=== PATIENT | female | born 1970 | race Caucasian/White ===

== ENCOUNTER → 2019-02-06 | Outpatient (CLI) | payer BC, MEDICARE, SELFPAY ==
[2019-01-31 13:53] VITALS: BMI 25.8
--- NOTE | 2019-02-03 15:55 | HP.PCM_ITS ---
Problem List (1) Abnormal mammogram of left breast Status: Acute History and Physical Date of Admission: 02/06/19 MR#:[id number] Name: FLORENTINO HARRIS Rep #: [id number] : 1970 Provider: Ashok Mccoy MD Age/Sex: 48/F Location: [facility] Status: Signed Intake Vital Signs 01/31/19 Height 5 ft 2 in 01/31/19 Weight: 141 lb 5 oz 01/31/19 Body Mass Index (BMI) 25.8 01/31/19 Blood Pressure 121/88 H 01/31/19 Blood Pressure Location Rt brachial 01/31/19 Blood Pressure Position Sitting 01/31/19 Respiratory Rate 18 01/31/19 Pulse Rate 70 01/31/19 Pulse Ox 100 Intake Visit Reasons: Birads 4 L Breast Mammo & US 12/22 Chief Complaint: birads 4 left breast 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 Is patient in pain?: No Allergies Sulfa (Sulfonamide Antibiotics) Allergy (Mild, Verified 01/31/19 13:58) hives venlafaxine [From Effexor] Allergy (Mild, Verified 01/31/19 13:58) hives Medications amlodipine 10 mg tablet 10 mg PO DAILY 01/31/19 [History Confirmed 01/31/19] fluoxetine 20 mg tablet 20 mg PO DAILY 01/31/19 [History Confirmed 01/31/19] fluticasone furoate 50 mcg/actuation blister powder for inhalation INHALATION ea 01/31/19 [History Confirmed 01/31/19] folic acid 1 mg tablet 1 mg PO DAILY 01/31/19 [History Confirmed 01/31/19] gabapentin 800 mg tablet 800 mg PO TID 01/31/19 [History Confirmed 01/31/19] metoprolol succinate ER 50 mg capsule sprinkle, ext. release 24 hr 50 mg PO DAILY 01/31/19 [History Confirmed 01/31/19] mirtazapine 45 mg tablet 45 mg PO DAILY 01/31/19 [History Confirmed 01/31/19] multivitamin,yd-ufds-yjskzvhd tablet 1 tab PO DAILY 01/31/19 [History Confirmed 01/31/19] omeprazole 20 mg capsule,delayed release 20 mg PO DAILY 01/31/19 [History Confirmed 01/31/19] prednisone 10 mg tablet 10 mg PO DAILY 01/31/19 [History Confirmed 01/31/19] quetiapine 100 mg tablet 100 mg PO TID 01/31/19 [History Confirmed 01/31/19] tofacitinib 5 mg tablet 5 mg PO BID 01/31/19 [History Confirmed 01/31/19] Is last menstrual period known: No Post menopausal: Yes Patient : No PFSH Medical History Abnormal mammogram of left breast (Acute) Anxiety (Acute) GERD (gastroesophageal reflux disease) (Acute) History of DVT (deep vein thrombosis) (Acute) Osteoarthritis (Acute) Rheumatoid arthritis (Acute) HTN (hypertension) (Chronic) Surgical History History of bunionectomy of both great toes (Acute) Status post finger joint fusion (Acute) Family History Sister Rheumatoid arthritis Social History Smoking Status: Never smoker HPI HPI HPI: FLORENTINO HARRIS, is a 48 F who presents to the office today for HPI HPI Surgical H&P: Yes HPI: FLORENTINO HARRIS, is a 48 F who presents to the office today for surgical consultation. The patient is referred by Dr. Vic Hinojosa in the written copy of my surgical consult and recommendations will be returned to her. Very pleasant 48-year-old female. G0, . Menarche at age 11. Menopause approximately age 46. No previous breast biopsies. She denied any estrogen replacement. 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 There is no family history of breast cancer. She denies any nipple discharge or bleeding. She has not had any palpable breast mass. She denies any previous history of breast trauma. She presented to [facility] in [facility] and on December 22, 2018 had screening mammography then diagnostic left mammography. At the 11 o'clock position left breast there were felt to be coarse calcifications too numerous to count associated with some fine calcifications. BI-RADS Category 4. On January 10, 2019 she had a left breast ultrasound which did not demonstrate focal mass ROS General General: Yes fatigue; no weight change, appetite, colon cancer, breast cancer or weakness HEENT HEENT: No difficulty swallowing, eye injury, eye surgery, swollen glands or hoarseness Endo Endocrine: No thyroid disease, diabetes mellitus, thyroid cancer, Hair loss, heat intolerance or cold intolerance Musc Musculoskeletal: Yes arthritis and rheumatoid arthritis; no back problems, gout or joint pain Cardio Cardiovascular: Yes high blood pressure; no murmur, pacemaker, heart disease, atrial fibrillation, heart attack, heart stent, palpitations, shortness of breat with exertion or chest pain Resp Respiratory: No shortness of breath, No sleep apnea, No cough, No COPD, No asthma, No emphysema, No wheezing Gastro Gastrointestinal: No abdominal pain, No nausea or vomiting, No diarrhea, No constipation, No blood in stool, No acid reflux, No hemorrhoids, No ulcers, No gallbladder problem, No black,tarry stools Jovany Hematologic: No blood thinners, No blood disorders, No bleeding, No anemia, Yes blood clots Additional Details: DVT 2015 Neuro Neurologic: No weakness Exam Const General: cooperative [facility] Other: [place] Chest Other: Right breast: No focal mass. No nipple discharge. No distortion. No axillary or clavicular adenopathy Left breast: Mild fibrous change upper mid left breast. No focally concerning mass. No distortion. No tenderness. No nipple discharge. No axillary or clavicular Resp Effort & Inspection: normal respiratory effort Auscultation: clear to auscultation bilaterally Cardio Rate: regular rate Rhythm: regular rhythm Heart Sounds: no murmurs Assessment & Plan Problems 1. Abnormal mammogram of left breast R92.8 Plan 56-year-old female on 2 separate immunologic suppressive agents. She has been able to successfully continue those agents while taking oral antibiotics to resolving a right ankle cellulitis. She is not currently showing any signs of systemic infection. She has an abnormal left mammogram with an area of coarse calcification with some fine calcification 11 o'clock position left breast. I am proposing for the patient is stereotactic needle core biopsy of this area. Might contemplate utilizing a smaller gauge needle. She has had an opportunity to ask and have questions answered. We will schedule and expedite her care. I very much appreciate the kind opportunity of assisting with her surgical care. CC: Dr. Jadyn Mccoy M.D., F.A.C.S. Coding Level of Care Code Exp prob focused,strt fwd Diagnoses Abnormal mammogram of left breast R92.8 01/31/19 0829 <Electronically signed by Ashok Mccoy MD> Date Ashok Sierra Signature: Date (if applicable) CC: Jadyn hinojosa ~ I have re-examined the patient. There are no clinical changes since date of exam.
--- NOTE | 2019-02-06 11:15 | BRBX_PTH ---
PATIENT: FLORENTINO HARRIS LOC: [facility] U#:[id number] AGE/SX: 48/F ROOM: RE02/06/[address]: Dr. Ashok Mccoy MD : 1970 BED: DIS: 02/06/2019 SPEC #: [id number] RECD: 02/06/19 11:49 STATUS: LIT REClark #: [id number] NANCI: 02/06/19 11:[address]: Ashok Mccoy DEPT: SURGICAL PATHOLOGY RECD BY: Hira Leyva ENTERED: 02/06/19 12:46 SP TYPE: BREAST BX OTHR DR: Dr. Jadyn Jeff MD Tissues: Left breast, NOS Procedures: Surgery Specimen Level IV HEADER OPERATION: Left breast stereotactic needle core biopsy PRE-OP DIAGNOSIS: Microcalcifications TISSUE SUBMITTED: Left breast ISCHEMIC TIME: 2 minutes FIXATION TIME: 8.5 hours MICROSCOPIC DIAGNOSIS Left breast, stereotactic needle core biopsy: Fragments of mature adipose tissue with focal fat necrosis and dystrophic calcifications. Negative for atypia or malignancy. Breast tissue is not identified in the submitted specimen. LUCIAN:ryanne 02/07/19 COMMENT Correlation with clinical, radiologic findings and appropriate follow up are necessary. MICROSCOPIC DESCRIPTION Slides are reviewed. GROSS DESCRIPTION Received in fixative is one container labeled with the patient's name and designated left breast stereotactic needle core biopsy. The specimen consists of multiple irregular fragments of yoder-yellow soft tissue that in aggregate measure 1.8 x 1.5 x 0.4 cm. The specimen is totally submitted in three cassettes. / CE:ryanne 02/06/19 TC:5 CPT: 44170
--- NOTE | 2019-02-06 11:27 | PCM.OPRPT ---
Problem List (1) Abnormal mammogram of left breast Status: Acute Report of Operation Date of Procedure: 02/06/19 Pre-Operative Diagnosis: Cluster microcalcifications upper mid left breast Post-Operative Diagnosis: Same Surgery/Procedure Performed:: Stereotactic needle core biopsy of upper mid left breast Description of Surgical Findings:: Timeout and informed consent was obtained. 48-year-old female was taken to the stereotactic room placed on the table the left breast was placed in the cc view. Stereotactic images were obtained. Digital information was obtained on the single target site. Target on tunnel kiln repairer was selected replacing image to. The breast was prepped with Betadine. 1% lidocaine was used as local anesthetic. Throughout the procedure a total of 10 cc was used. Because of the patient's immunosuppressive agent medications I elected to use the 10-gauge needle. A small stab incision was created. The needle was advanced to prefire depth. Prefire films were obtained demonstrating adequate localization. The device was fired and it became apparent that the microcalcifications were quite close. Therefore I closed the chamber down to 12 mm. Multiple cores were obtained. Specimen films were obtained and several of the cores had a coarse bright calcifications correlating with the preoperative imaging. The specimens were immediately placed in formalin. A small marking clip was left at 12 o'clock position. On fast view demonstrated that the marking clip was now present in all the previous calcifications had been removed. She was released from the device and pressure was held for hemostasis. Steri-Strips and Telfa and OpSite dressing was applied. No apparent complications. Blood loss was minimal. The patient will be notified of pathology results as they become available Ashok Mccoy M.D., F.A.C.S. Type of Anesthesia:: Local
== END | disposition home or self-care (01) ==
LOC: BIRAD 10:21
PROVIDERS: Family Provider Student in an Organized Health Care Education/Training Program; PCP Student in an Organized Health Care Education/Training Program; Referring Provider Surgery; Visit Provider Surgery
DX: R92.8 Other abnormal and inconclusive findings on diagnostic imaging of breast (principal); I10 Essential (primary) hypertension; M06.9 Rheumatoid arthritis, unspecified; M19.90 Unspecified osteoarthritis, unspecified site; K21.9 Gastro-esophageal reflux disease without esophagitis; F41.9 Anxiety disorder, unspecified; Z86.718 Personal history of other venous thrombosis and embolism; Z79.899 Other long term (current) drug therapy
CPT/HCPCS: 19081; 88305; J7050

== ENCOUNTER 2021-12-02 16:29 | Inpatient (IN) | payer BC, MEDICARE, SELFPAY ==
[2021-12-02 16:30] VITALS: BP 101/78; PULSE 69; RESP 15; TEMP 36; O2SAT 97; BMI 13.7
--- NOTE | 2021-12-02 16:47 | EKG12_ITS ---
Test Reason : SURGERY Blood Pressure : / mmHG Vent. Rate : 048 BPM Atrial Rate : 048 BPM P-R Int : 170 ms QRS Dur : 072 ms QT Int : 434 ms P-R-T Axes : 066 -87 057 degrees QTc Int : 387 ms Sinus bradycardia Left axis deviation Low voltage QRS Inferior infarct , age undetermined Abnormal ECG Confirmed by JULI ZHAO, SHWETA ([id number]), editorial project manager JASON LEBLANC ([id number]) on 12/04/2021 1:34:51 PM Referred By: EMMA Confirmed By:SHWETA BUSTOS MD
--- NOTE | 2021-12-02 16:55 | EDS_ITS ---
HPI History of Present Illness Chief Complaint: Lower Extremity Injury Detail of Chief Complaint: Right femoral neck fracture Informant: patient and spouse/S.O. Occured/Mechanism Mechanism/Context: Yes blunt trauma, Yes fall and Yes same level fall Comment: Patient fell on Wednesday and was seen at outside facility Onset/Context/Timing Onset: Days (Injury occurred Wednesday, November 29) Context: Sudden Onset Timing: Continuous Quality of Pain: Dull and Aching Location: Right groin region Current Severity: Gone Maximum Severity: Moderate Worsened by: Movement Relieved by: Supine remaining still Associated Symptoms Associated Symptoms: Positive for Loss of Funtion Narrative Narrative: Patient is a 51-year-old woman with history of hypertension and rheumatoid arthritis on numerous rheumatologic meds who fell on Wednesday and was seen at outside facility. She had a x-ray that was reported Jono negative. There was a CAT scan that raised concern for a hairline fracture she was discharged to home with walker. She was scheduled to see Dr. Temple on Wednesday. She saw his physician assistant press operator. X-rays were taken. X-rays from outside facility were reviewed by me and reveal a femoral neck fracture that is displaced. According to the she has put weight on her leg. She does complain of pain in the right groin. She denied head injury at time of fall. She denies headache. Denies visual, ocular auditory symptoms. Denies neck pain. She denies paresthesia, anesthesia or motor weakness. Tetanus Immunization: 5-10 years Prior similar symptoms: No Recent Illness/Hospitalization: Yes [facility] Medical History (Updated 12/02/21 @ 19:[address] Issac Hernandez MD) Abnormal mammogram of left breast Anorexia nervosa Anxiety COVID-19 vaccine dose declined GERD (gastroesophageal reflux disease) History of DVT (deep vein thrombosis) HTN (hypertension) Non-smoker Osteoarthritis Rheumatoid arthritis Home Medications amlodipine 10 mg tablet 10 mg PO DAILY 01/31/19 [History Last Taken 12/02/21] fluoxetine 20 mg tablet 20 mg PO DAILY 01/31/19 [History Last Taken 12/01/21] fluticasone furoate 50 mcg/actuation blister powder for inhalation 50 mcg INHALATION QWEEK ea 01/31/19 [History Last Taken Unknown] folic acid 1 mg tablet 1 mg PO DAILY 01/31/19 [History Last Taken 12/02/21] gabapentin 800 mg tablet 800 mg PO TID 01/31/19 [History Last Taken 12/02/21] metoprolol succinate 50 mg capsule sprinkle, ext. release 24 hr 50 mg PO DAILY 01/31/19 [History Last Taken 12/02/21] mirtazapine 45 mg tablet 45 mg PO DAILY 01/31/19 [History Last Taken 12/01/21] multivitamin,oy-bmhi-yhucmlvy 1 tab PO DAILY 01/31/19 [History Last Taken 12/01/21] omeprazole 20 mg capsule,delayed release 20 mg PO DAILY 01/31/19 [History Last Taken 12/01/21] quetiapine 100 mg tablet 100 mg PO DAILY 01/31/19 [History Last Taken 12/01/21] tofacitinib 5 mg tablet 5 mg PO BID 01/31/19 [History Last Taken 12/01/21] prednisone 2 mg PO DAILY 12/02/21 [History Last Taken 12/01/21] prednisone 5 mg PO DAILY 12/02/21 [History Last Taken 12/01/21] Allergy/AdvReac Type Severity Reaction Status Date / Time Sulfa (Sulfonamide Allergy Mild hives Verified 12/02/21 16:32 Antibiotics) venlafaxine [From Effexor] Allergy Mild hives Verified 12/02/21 16:32 Family History (Updated 12/02/21 @ 17:[address] Khoa Garibay DO) Sister Rheumatoid arthritis Other CAD (coronary artery disease) CVA (cerebral vascular accident) Surgical History History of bunionectomy of both great toes Status post finger joint fusion Social History household members: spouse Smoking Status: Never smoker substance use type: does not use ROS ROS ED Constitutional Constitutional ED: Denies chills, fever(s), subjective, sweats or weight loss Eyes Eyes: Denies blurry vision, change in vision or diplopia ENT ENT ED: Denies ear pain, rhinorrhea or sore throat Cardiovascular Cardiovascular: Denies chest pain, orthopnea, palpitations, paroxysmal nocturnal dyspnea or racing heartbeat Respiratory/Chest Respiratory/Chest: Reports other Details: She denies pleuritic chest pain ; Denies cough, dyspnea, dyspnea on exertion, orthopnea or paroxysmal nocturnal dyspnea Gastrointestinal Gastrointestinal: Denies abdominal pain, diarrhea, nausea or vomiting Genitourinary Genitourinary ED: Denies dysuria, hematuria or urinary frequency Musculoskeletal Musculoskeletal: Reports arthralgias; Denies back pain, myalgias or neck pain Integumentary Reports Abrasions; Denies rash Neurologic Neurologic: Denies headache(s), paresthesias or weakness Hematologic/Lymphatic Hematologic/Lymphatic: Denies easy bleeding or easy bruising EXAM Physical Exam Const Vital Signs: 12/02/21 16:30 Temperature 96.8 F L Temperature Source Temporal Pulse Rate 69 Respiratory Rate 15 Blood Pressure 101/78 Blood Pressure Mean 85 Pulse Ox 97 Oxygen Delivery Method Room Air Positive well developed and cachectic General Appearance ED: well developed, cachectic and NAD Nutritional Appearance: cachectic HEENT Reports moist mucous membranes HEENT Narrative: Ears normal. Nares patent. No evidence of dental trauma. normocephalic and atraumatic Eyes PERRL Eyes Narrative: Extract muscle intact. Sclerae anicteric. Conjunctive is pink. Neck full ROM and supple Thyroid: Negative for tender Chest Wall inspection of chest normal Resp normal respiratory effort and clear to auscultation bilaterally Cardio regular rate, regular rhythm, S1 normal heart sound, S2 normal heart sound and no murmurs GI non-tender, non-distended and no masses Auscultation: normoactive bowel sounds Palpation: soft Back/Spine no CVA tenderness Thoracic Spine / Upper Back: Negative for thoracic spinal tenderness Lumbar Spine / Lower Back: Negative for lumbar spinal tenderness Extremity normal to inspection Extremity Narrative: The right lower extremity appears shortened. Patient has significant deformity to joints consistent with rheumatoid arthritis. General Extremety ED: Yes weight-bearing difficulty; Negative for cyanosis General Extremity: weight-bearing difficulty; Negative for cyanosis Neuro oriented x3 and CN's II-XII intact bilaterally Sensorium / Orientation: alert Psych mental status grossly normal Skin Lesions: no lesions Rashes: no rashes MDM MDM MDM Narrative Medical decision making narrative: X-rays from outside facility reviewed. Patient has a femoral neck fracture on the right. Appropriate blood work including type and screen, EKG and chest x-ray obtained for preoperative clearance. Patient will be admitted to medicine with consult to Dr. Estrada who will perform the surgery. Lab Data Attestation: I reviewed the patient's lab results. Labs: Laboratory Results - last 24 hr 12/02/21 12/02/21 12/02/21 16:46 17:10 17:10 WBC 6.1 RBC 4.13 L Hgb 14.8 Hct 42.1 MCV 101.9 H MCH 35.8 H MCHC 35.2 RDW Std Deviation 51.4 H RDW Coeff of Shanta 13.4 Plt Count 209 MPV 9.0 Immature Gran % (Auto) 0.300 Neut % (Auto) 75.9 H Lymph % (Auto) 14.7 L [place] % (Auto) 8.9 Eos % (Auto) 0.2 Baso % (Auto) 0.0 Absolute Neuts (auto) 4.6 Absolute Lymphs (auto) 0.89 Nucleated RBC % 0 PT 12.7 INR 1.0 APTT 30.4 Sodium 135 L Potassium 4.4 Chloride 100 Carbon Dioxide 30.0 Anion Gap 5 BUN 10 Creatinine 0.52 L Estim Creat Clear Calc 67.19 Est GFR (MDRD) Af Amer 157 Est GFR (MDRD) Non-Af 130 BUN/Creatinine Ratio 19.1 Glucose 90 Calcium 8.2 L Total Bilirubin 0.50 AST 19 ALT 29 Alkaline Phosphatase 48 Total Protein 5.8 L Albumin 2.8 L Globulin 3.0 Albumin/Globulin Ratio 0.9 Radiography X-Ray: Read by ED Physician (Single view chest x-ray was interpreted by me as no acute findings. Cardiac silhouette size normal. There is evidence of hyperaeration. There is no significant abnormality of the osseous structures. The mediastinum is unremarkable.) and - (X-ray of the right hip and pelvis reveals a displaced femoral neck fracture on the right that was provided by patient from outside facility.) Diagnostic Testing: Clinical Impression(s) from Imaging Studies Chest X-Ray 12/02/21 17:25 IMPRESSION: No radiographic evidence of acute cardiopulmonary disease. at 1842 Reported and signed by: Ravinder Melissa MD Electronically Signed: Ravinder Melissa MD at 18:41 EST , EKG Initial EKG: Attestation: I personally reviewed and interpreted this EKG as follows: Interpretation: Sinus Bradycardia (Ventricular rate is 48. MD interval is 170 ms. QS duration 72 ms. QT duration is 434 ms. [place] is to the left. Patient has low voltage.) Discharge Plan Triage Chief Complaint: Lower Extremity Injury ED Provider: Issac Hernandez Dx/Rx/DC Orders Clinical Impression: Fracture of femoral neck, right, closed Primary Care Provider: Jadyn Jeff Disposition Disposition: Acute Care Hospital [facility] Discharge Date/Time: 12/02/21 18:11
--- NOTE | 2021-12-02 17:15 | EKG12_ITS ---
Test Reason : SURGERY Blood Pressure : / mmHG Vent. Rate : 049 BPM Atrial Rate : 049 BPM P-R Int : 170 ms QRS Dur : 070 ms QT Int : 430 ms P-R-T Axes : 069 -89 064 degrees QTc Int : 388 ms Sinus bradycardia Left axis deviation Low voltage QRS Inferior infarct , age undetermined Abnormal ECG Confirmed by AYO ZHAO, ANJEL ([id number]), editor producer JASON LEBLANC ([id number]) on 12/05/2021 1:39:06 PM Referred By: EMMA Confirmed By:NATALEE ROLLINS MD
--- NOTE | 2021-12-02 17:15 | NURSING ---
MED SURG PATRICE RT FEMORAL NECK FRACTURE
--- NOTE | 2021-12-02 17:25 | RAD_ITS ---
HISTORY: pre-op EXAMINATION/TECHNIQUE: XR Chest 1 View: Portable upright AP chest x-ray COMPARISON: None FINDINGS: LINES/DEVICES: None. LUNGS: No consolidation, edema or effusion. No pneumothorax. MEDIASTINUM AND CARDIOVASCULAR STRUCTURES: Cardiac silhouette not enlarged. Central airways and mediastinal contour are unremarkable. BONES AND SOFT TISSUES: No acute bony abnormalities. RAD/Chest 1 View (Portable) IMPRESSION: No radiographic evidence of acute cardiopulmonary disease. at 1842 Reported and signed by: Ravinder Melissa MD Electronically Signed: Ravinder Melissa MD at 18:41 EST ,
[2021-12-02 17:33] LABS: Absolute Lymphocyte Count 0.89 X10^3/uL (0.83-4.51); Absolute Neutrophil Count 4.6 X10^3/uL (2.0-7.7); Eosinophil# 0.01 X10^3/uL; Eosinophils% 0.2 % (0-5); Hematocrit 42.1 % (37-47); Hemoglobin 14.8 g/dL (12.0-15.0); Lymphocyte # 0.89 X10^3/ul (0.83-4.51); Lymphocyte % 14.7 % (19-41); Mean Corp Hgb Conc 35.2 g/dL (32-36); Mean Corpuscular Hgb 35.8 pg (27.0-32.0); Mean Corpuscular Volume 101.9 fL (81-99); Monocyte# 0.54 X10^3/uL; Monocyte% 8.9 % (0-10); NRBC Flagged by Analyzer 0 % (0-5); Neutrophil # 4.59 X10^3/uL (2.7-7.7); Neutrophil % 75.9 % (47-70); Platelet Count 209 K/mm3 (150-450); RBC Distribution Width CV 13.4 % (11.6-14.6); RBC Distribution Width SD 51.4 fl (35.1-43.9); Red Blood Count 4.13 M/mm3 (4.2-5.4); White Blood Count 6.1 K/mm3 (4.4-11.0)
--- NOTE | 2021-12-02 17:35 | HP.PCM.HOS_ITS ---
HPI - General General Date of Admission: 12/02/21 Date of Service: 12/02/21 Chief Complaint: hip pain HPI Narrative FLORENTINO HARRIS, is a 51 F who presents with a right hip fracture. Patient fell Wednesday after bending forward and she landed on her right side. Had no other injuries. Was able to go upstairs but had pain. Seen in outside emergency room the following day and was diagnosed with a hip fracture. Patient was noted to have a hairline fracture on CAT scan and was discharged with a walker. Patient saw the physician sales assistants and salespersons for Dr. Otis Temple and x-rays showed displacement now of that femoral neck fracture. Patient was then sent to the emergency room. Plan is for the patient to have surgery on the second with Dr. Moe. [facility] Medical History (Updated 12/02/21 @ 17:[address] Khoa Garibay, DO) Abnormal mammogram of left breast Anorexia nervosa Anxiety COVID-19 vaccine dose declined GERD (gastroesophageal reflux disease) History of DVT (deep vein thrombosis) HTN (hypertension) Osteoarthritis Rheumatoid arthritis Home Medications amlodipine 10 mg tablet 10 mg PO DAILY 01/31/19 [History Last Taken Unknown] fluoxetine 20 mg tablet 20 mg PO DAILY 01/31/19 [History Last Taken Unknown] fluticasone furoate 50 mcg/actuation blister powder for inhalation INHALATION ea 01/31/19 [History Last Taken Unknown] folic acid 1 mg tablet 1 mg PO DAILY 01/31/19 [History Last Taken Unknown] gabapentin 800 mg tablet 800 mg PO TID 01/31/19 [History Last Taken Unknown] metoprolol succinate 50 mg capsule sprinkle, ext. release 24 hr 50 mg PO DAILY 01/31/19 [History Last Taken Unknown] mirtazapine 45 mg tablet 45 mg PO DAILY 01/31/19 [History Last Taken Unknown] multivitamin,yn-tbha-sbaxmgax 1 tab PO DAILY 01/31/19 [History Last Taken Unknown] omeprazole 20 mg capsule,delayed release 20 mg PO DAILY 01/31/19 [History Last Taken Unknown] prednisone 10 mg tablet 10 mg PO DAILY 01/31/19 [History Last Taken Unknown] quetiapine 100 mg tablet 100 mg PO TID 01/31/19 [History Last Taken Unknown] tofacitinib 5 mg tablet 5 mg PO BID 01/31/19 [History Last Taken Unknown] Allergy/AdvReac Type Severity Reaction Status Date / Time Sulfa (Sulfonamide Allergy Mild hives Verified 12/02/21 16:32 Antibiotics) venlafaxine [From Effexor] Allergy Mild hives Verified 12/02/21 16:32 Family History (Updated 12/02/21 @ 17:[address] Khoa Garibay DO) Sister Rheumatoid arthritis Other CAD (coronary artery disease) CVA (cerebral vascular accident) Surgical History History of bunionectomy of both great toes Status post finger joint fusion Social History household members: spouse Smoking Status: Never smoker substance use type: does not use ROS ROS Narrative Has degenerative changes to her digits which are chronic. Right hip pain status post fall. Does not eat or drink much but though has increased intake since her fall. Has lost weight recently. All review of systems were negative except as mentioned above in the history of present illness and the other review of systems. Vital Signs Vital Signs Vital Signs: 12/02/21 16:30 Temperature 36.0 C L Temperature Source Temporal Pulse Rate 69 Respiratory Rate 15 Blood Pressure 101/78 Blood Pressure Mean 85 Pulse Ox 97 Oxygen Delivery Method Room Air Weight Weight: 34.019 kg Body Mass Index (BMI) 13.7 Physical Exam Const alert and no apparent distress Constitutional Narrative: Appears older than stated age General Appearance: cooperative HEENT normocephalic and head/scalp atraumatic HEENT Narrative: Temporal wasting Eyes Eyes Narrative: Glasses. No icterus. Neck no lymphadenopathy Neck Narrative: No thyromegaly Resp normal respiratory effort, no retractions, no use of accessory muscles and clear to auscultation bilaterally Cardio regular rate, regular rhythm, S1 normal heart sound and S2 normal heart sound GI normal to inspection, nondistended, normoactive bowel sounds, soft to palpation, non-tender and non-distended Extremity Extremity Narrative: Profound muscle wasting in her extremities. Ulnar deviation of her fingers. Patient has somewhat normal large toes bilaterally better her toes 2 through 5 are abnormally small. Neuro oriented x3 Neuro Narrative: Moves all extremities spontaneously Sensorium / Orientation: awake, alert, oriented to person and oriented to place Psych affect normal Results Lab / Micro Data Attestation: I reviewed the patient's lab results. EKG Initial EKG: Attestation: I personally reviewed and interpreted this EKG as follows: Prior EKG tracings: available for review EKG Rhythm Intrepretation: Sinus Bradycardia Assessment & Plan Assessment/Plan (1) Fracture of femoral neck: QUALIFIERS: Encounter type: subsequent encounter Fracture type: closed Laterality: right Fracture healing: with routine healing Qualified Code(s): S72.001D - Fracture of unspecified part of neck of right femur, subsequent encounter for closed fracture with routine healing PLAN: #1. Right femoral neck fracture Onset was the 24 Likely osteoporotic given her long-term steroid use as well as poor nutritional status NQSIP performed and shows the patient is higher than average risk for serious complications, any complications, cardiac complications, surgical site infection, urinary tract infections, readmission, return to the OR, , discharged to a penitentiary or rehab facility. Patient presents good performance status and ride stationary bike or swims. I feel the patient is otherwise medically optimized proceed with surgery though I am still waiting on her lab work for today. Barring any significant laboratory abnormality patient should be medically cleared to proceed with surgery. EKG shows sinus bradycardia but nothing remarkable otherwise. #2. Anorexia nervosa Complicates care and overall recovery Patient is very cachectic in appearance. Patient is to see psychiatry in the near future to help her with this. Recommended that she do speak with one of our car repair supervisor to get more information but nutrition is can be very important for her regards to her healing and improving her strength. #3. Severe protein calorie malnutrition BMI is 13.7 Complicates overall care and recovery #4 anxiety Complicates all of these issues as well Continue with her home medications #5. VTE prophylaxis SCDs for now #6. COVID-19 vaccination status: Patient is unvaccinated. I recommended that she do get vaccinated given her chronic medical conditions making her at risk for more severe COVID-19 infection #7 CODE STATUS: Patient unsure. Informed her that would leave her at full CODE STATUS unless she indicated to us otherwise as she wished to be DNR Comfort Care arrest. Charges/Coding Visit Charges Inpatient E&M: 30363 Init Hosp L2
[2021-12-02 17:48] LABS: Prothrombin Time (Protime)PT. 12.7 SECONDS (11.7-14.9)
[2021-12-02 17:49] LABS: Partial Thromboplast Time 30.4 Seconds (24.1-36.2)
[2021-12-02 18:02] VITALS: BP 112/84; PULSE 48; RESP 16; TEMP 36; O2SAT 100
[2021-12-02 18:08] LABS: ALB/GLOB Ratio 0.9 RATIO (0.9-2.4); AST(SGOT) 19 U/L (15-37); Alanine Aminotransfer ALT/SGPT 29 U/L (13-56); Albumin, Serum 2.8 g/dL (3.2-5.0); Alkaline Phosphatase 48 U/L (45-117); Anion Gap 5 (5-15); BUN 10 mg/dL (7-18); BUN/Creat Ratio 19.1 RATIO (10-20); Calcium,Total 8.2 mg/dL (8.5-10.1); Chloride 100 mmol/L (98-107); Creatinine, Serum 0.52 mg/dL (0.55-1.02); EST Glomerular Filtration Rate 130 mL/min (>60); Est Glom Filt Rate - Afr Amer 157 mL/min (>60); Estimated Creatinine Clearance 67.19 ml/min; Glucose 90 mg/dL (74-106); Potassium 4.4 mmol/L (3.5-5.1); Protein, Total 5.8 g/dL (6.4-8.2); Sodium Level 135 mmol/L (136-145)
[2021-12-02 18:25] VITALS: BMI 13.5
[2021-12-02 18:43] VITALS: BP 101/75; PULSE 47; RESP 16; TEMP 36.4; O2SAT 95
[2021-12-02] MEDS: oxyCODONE 5 MG Tablet 10 MG PO (20:07)
[2021-12-02 21:29] LABS: ALB/GLOB Ratio 0.9 RATIO (0.9-2.4); AST(SGOT) 20 U/L (15-37); Alanine Aminotransfer ALT/SGPT 26 U/L (13-56); Albumin, Serum 2.7 g/dL (3.2-5.0); Alkaline Phosphatase 47 U/L (45-117); Anion Gap 5 (5-15); BUN 9 mg/dL (7-18); BUN/Creat Ratio 18.4 RATIO (10-20); Calcium,Total 8.4 mg/dL (8.5-10.1); Chloride 104 mmol/L (98-107); Creatinine, Serum 0.49 mg/dL (0.55-1.02); EST Glomerular Filtration Rate 141 mL/min (>60); Est Glom Filt Rate - Afr Amer 170 mL/min (>60); Estimated Creatinine Clearance 70.48 ml/min; Glucose 68 mg/dL (74-106); Potassium 4.3 mmol/L (3.5-5.1); Protein, Total 5.7 g/dL (6.4-8.2); Sodium Level 138 mmol/L (136-145)
[2021-12-02] MEDS: Senna/Docusate Sodium 1 Tablet 2 TABLET PO (21:39)
[2021-12-02 21:47] VITALS: O2SAT 95
[2021-12-02] MEDS: Gabapentin 600 MG Tablet 1200 MG PO (23:48)
[2021-12-02] MEDS: Morphine 4 MG/ML Syringe IV (23:49)
[2021-12-02] MEDS: 0.9% Saline Lock 10 ML Syringe IV (23:50)
[2021-12-02] MEDS: 0.9% Normal Saline 1,000 ML 100 ML IV (23:54)
[2021-12-03] VITALS (16 sets, daily range): BP systolic 95–129; BP diastolic 63–94; PULSE 53–78; RESP 8–18; TEMP 35.9–37; O2SAT 95–100; BMI 13.5
--- NOTE | 2021-12-03 | HIP_PTH ---
PATIENT: FLORENTINO HARRIS LOC: MS3 U#:[id number] AGE/SX: 51/F [place] [facility] [place]: Dr. Tiffany De La Cruz DO : 1970 BED: 1 DIS: 12/04/2021 SPEC #: [id number] RECD: 12/03/21 13:38 STATUS: LIT REClark #: [id number] NANCI: 12/03/21 00:[address]: Sudhir Moe DEPT: SURGICAL PATHOLOGY RECD BY: Da Ann ENTERED: 12/04/21 12:01 SP TYPE: TOTAL HIP OTHR DR: DO Dr. Tiffany York DO Dr. Rohini Kalisetti, MD Dr. Steven Widmer, MD Tissues: Hip, NOS Procedures: Decalcification bone/plaque Surgery Specimen Level IV Comments: @ Ordering doctor for DEC edited from to @ levon JON at 12/04/21 1450 @ Ordering doctor for SUIV edited from to @ by DANAY at 12/04/21 1458 @ Submitting doctor edited from to @ by DANAY at 12/04/21 1459 HEADER OPERATION: Total hip anterior approach PRE-OP DIAGNOSIS: Right femoral neck fracture TISSUE SUBMITTED: Right femoral head MICROSCOPIC DIAGNOSIS Bone and tissue of right hip, fracture: Consistent with organizing fracture callous. AM:ryanne 12/08/2021 MICROSCOPIC DESCRIPTION Slides are reviewed. GROSS DESCRIPTION Received is one container labeled with the patient's name and designated right femoral head. The specimen consists of a yoder femoral head measuring 4.5 x 4 x 4 cm. The articular surface is smooth. Resection margin is irregular and hemorrhagic. Also present in the specimen container are multiple pieces of bone measuring in aggregate 2.5 x 2 x 0.3 cm. Flying Shear Operator sections are submitted in two cassettes after decalcification as follows: 1 - detached pieces of bone, 2 - femoral head. / SJ:ryanne 12/04/2021 TC:5 CPT: 61515, 64679
[2021-12-03] MEDS: Gabapentin 600 MG Tablet 1200 MG PO ×2 (08:09→14:47)
[2021-12-03] MEDS: amLODIPine 10 MG Tablet PO ×2 (08:09→14:46)
[2021-12-03 08:25] LABS: Bedside Glucose 75 mg/dL (70-110)
--- NOTE | 2021-12-03 09:23 | CON.PCM_ITS ---
Assessment & Plan Assessment/Plan (1) Fracture of femoral neck, right, closed: PLAN: Natural history of the disease process was discussed with the patient. As well as natural history of rheumatoid arthritis and patient is associated expected osteopenic bone structures. Treatment options were discussed the patient based on patient's rheumatologic history as well as displacement of fracture we discussed ORIF, nonoperative treatment, partial replacement a total replacement. At this time based on her disease processes I recommended total replacement. She understands there is an increased risk of infection and fracture due to her chronic use of steroids as well as immune modulating medications for rheumatoid arthritis. In addition she would recognize the regular risks of surgery which include but are not limited to blood loss, DVTs, PEs, nervous damage, infection, the general risk of of anesthesia which does include loss of life, dislocations which are elevated in the face of a fracture and leg length discrepancies. Patient is agreeable to this treatment plan and wishes to move forward. In addition we discussed her osteopenic bone quality and her higher risk of fracture in preparation of the bone. (2) Rheumatoid arthritis: PLAN: Patient will need to discontinue her xeljanz postoperatively for 2 weeks as the wound heals. In addition due to patient's risk factors we will also place the patient on 2 weeks of doxycycline postoperatively. (3) History of DVT (deep vein thrombosis): PLAN: Patient's risk ratification would justify use of potent anticoagulation postoperatively due to her history of DVT. HPI Consult Data Date of Consult: 12/03/21 HPI Narrative Reason for Consultation: Right hip pain HPI Narrative: FLORENTINO HARRIS, is a 51 F with significant rheumatoid arthritis on xeljanz and chronic use of steroids. Presents today with right hip pain. Patient has a history of left hip fracture fixed by myself with a left total hip replacement. Patient notes she was standing at home on Wednesday evening leaning forward and fell from standing. She had pain in her hip. She could not ascend the stairs. Her took her to the hospital where she had a nondisplaced femoral neck fracture. I was not distance education director the on-call physician felt it would be appropriate for the patient to go home with crutches and follow-up with me as s he is a complex patient with malnutrition, immune suppression due to rheumatoid arthritis and significant risk factors for complications with surgery. Patient presented to the office yesterday to another one of my partners who requested I overtake her care. She was directed to go to the emergency department due to having a displaced hip fracture and inability to bear weight at that time. She was admitted overnight to medicine and cleared for surgery today. Currently pain is a 7 out of 10 worse with motion better with immobilization and pain medications. Pain is located in the right hip and groin. She has associated bruising and ecchymosis in the upper and lower extremities with some skin tears related to her thin skin. No open chronic wound or infection. She has had treatment for topical infections due to some of the skin tears and wounds in the past couple of years. Currently she is unable to bear weight. She does have a history of a previous DVT [facility] Medical History (Updated 12/03/21 @ 09:[address] Sudhir Moe MD) Abnormal mammogram of left breast Anorexia nervosa Anxiety COVID-19 vaccine dose declined GERD (gastroesophageal reflux disease) History of DVT (deep vein thrombosis) HTN (hypertension) Non-smoker Osteoarthritis Rheumatoid arthritis Home Medications amlodipine 10 mg tablet 10 mg PO DAILY 01/31/19 [History Last Taken 12/02/21] fluoxetine 20 mg tablet 20 mg PO DAILY 01/31/19 [History Last Taken 12/01/21] fluticasone furoate 50 mcg/actuation blister powder for inhalation 50 mcg INHALATION QWEEK ea 01/31/19 [History Last Taken Unknown] folic acid 1 mg tablet 1 mg PO DAILY 01/31/19 [History Last Taken 12/02/21] metoprolol succinate 50 mg capsule sprinkle, ext. release 24 hr 50 mg PO DAILY 01/31/19 [History Last Taken 12/02/21] mirtazapine 45 mg tablet 45 mg PO DAILY 01/31/19 [History Last Taken 12/01/21] multivitamin,yu-vjcu-fckqqorn 1 tab PO DAILY 01/31/19 [History Last Taken 12/01/21] omeprazole 20 mg capsule,delayed release 20 mg PO DAILY 01/31/19 [History Last Taken 12/01/21] quetiapine 100 mg tablet 100 mg PO DAILY 01/31/19 [History Last Taken 12/01/21] tofacitinib 5 mg tablet 5 mg PO BID 01/31/19 [History Last Taken 12/01/21] gabapentin 1,200 mg PO 0000 12/02/21 [History Last Taken 12/01/21] gabapentin 1,200 mg PO 0800 12/02/21 [History Last Taken 12/02/21] gabapentin 800 mg PO 1730 12/02/21 [History Last Taken 12/01/21] prednisone 2 mg PO DAILY 12/02/21 [History Last Taken 12/01/21] prednisone 5 mg PO DAILY 12/02/21 [History Last Taken 12/01/21] Allergy/AdvReac Type Severity Reaction Status Date / Time Sulfa (Sulfonamide Allergy Mild hives Verified 12/02/21 16:32 Antibiotics) venlafaxine [From Effexor] Allergy Mild hives Verified 12/02/21 16:32 Family History (Updated 12/02/21 @ 17:[address] Khoa Garibay DO) Sister Rheumatoid arthritis Other CAD (coronary artery disease) CVA (cerebral vascular accident) Surgical History (Updated 12/02/21 @ 23:17 by Anderson Hillman) History of bunionectomy of both great toes History of total left hip replacement Status post finger joint fusion Social History household members: spouse Smoking Status: Never smoker substance use type: does not use ROS Constitutional Constitutional: Reports systems reviewed and no addt'l complaints, except as documented Physical Exam Const alert, oriented x3 and no apparent distress Constitutional Narrative: Cachectic appearance HEENT normocephalic Eyes PERRL Neck No nuchal rigidity Resp normal respiratory effort Cardio Jugular Venous Distention: Negative for JVD GI non-distended Extremity Extremity Narrative: Right lower extremity: Patient has ecchymosis and skin tears over the lower leg. Positive leg roll. Shortened externally rotated extremity. Sensations intact light touch saphenous, sural, superficial peroneal, deep radial tibial nerve distributions. Positive dorsiflexion EHL and plantar flexion. Palpable DP pulses. Positive logroll test. Skin Wound Narrative: Patient has numerous upper and lower extremity areas of ecchymosis and skin tears. Lab / Micro Data Result Diagrams: 12/02/21 17:10 12/02/21 20:03 Labs: Laboratory Results - last 24 hr 12/02/21 16:46: Sodium 135 L, Potassium 4.4, Chloride 100, Carbon Dioxide 30.0, Anion Gap 5, BUN 10, Creatinine 0.52 L, Estim Creat Clear Calc 67.19, Est GFR (MDRD) Af Amer 157, Est GFR (MDRD) Non-Af 130, BUN/Creatinine Ratio 19.1, G lucose 90, Calcium 8.2 L, Total Bilirubin 0.50, AST 19, ALT 29, Alkaline Phos phatase 48, Total Protein 5.8 L, Albumin 2.8 L, Globulin 3.0, Albumin/Globulin Ratio 0.9 12/02/21 17:10: Blood Type A POSITIVE, Antibody Screen NEGATIVE 12/02/21 17:10: WBC 6.1, RBC 4.13 L, Hgb 14.8, Hct 42.1, MCV 101.9 H, MCH 35.8 H , MCHC 35.2, RDW Std Deviation 51.4 H, RDW Coeff of Shanta 13.4, Plt Count 209, MPV 9.0, Immature Gran % (Auto) 0.300, Neut % (Auto) 75.9 H, Lymph % (Auto) 14.7 L, [place] % (Auto) 8.9, Eos % (Auto) 0.2, Baso % (Auto) 0.0, Absolute Neuts (auto) 4.6, Absolute Lymphs (auto) 0.89, Nucleated RBC % 0 12/02/21 17:10: PT 12.7, INR 1.0, APTT 30.4 12/02/21 20:03: Sodium 138, Potassium 4.3, Chloride 104, Carbon Dioxide 29.0, Anion Gap 5, BUN 9, Creatinine 0.49 L, Estim Creat Clear Calc 70.48, Est GFR (MDRD) Af Amer 170, Est GFR (MDRD) Non-Af 141, BUN/Creatinine Ratio 18.4, Glucose 68 L, Calcium 8.4 L, Total Bilirubin 0.50, AST 20, ALT 26, Alkaline Phosphatase 47, Total Protein 5.7 L, Albumin 2.7 L, Globulin 3.0, Albumin/Globulin Ratio 0.9 12/03/21 08:19: POC Glucose 75 Micro: Microbiology 12/02/21 17:20 Nasal Secretion SARS-CoV-2 Antigen (Rapid) - Final Radiology Impression Chest X-Ray 12/02/21 17:25 IMPRESSION: No radiographic evidence of acute cardiopulmonary disease. at 1842 Reported and signed by: Ravinder Melissa MD Electronically Signed: Ravinder Melissa MD at 18:41 EST , Outside x-rays were reviewed of the right hip. They show stable left hip replacement on the AP pelvis with a displaced right femoral neck transcervical fracture.
[2021-12-03 09:44] LABS: Vitamin D,25 Hydroxy 46.2 ng/mL
[2021-12-03] MEDS: Cefazolin 2 GM in 0.9% Normal Saline 100 ML IV (10:51)
--- NOTE | 2021-12-03 11:28 | RAD_ITS ---
HISTORY: RIGHT TOTAL HIP ANTERIOR APPROACH EXAMINATION/TECHNIQUE: XR Hip Unilateral with Pelvis when performed; 4 fluoroscopic spot films obtained intraoperatively COMPARISON: 12/02/2009 oh FINDINGS: 4 spot films obtained intraoperatively show right hip prosthesis in anatomic alignment on the frontal views. Stable appearance of the left hip prosthesis. Total fluoroscopic time 5.9 seconds. RAD/Hip 1 view with Pelvis IMPRESSION: Status post right hip replacement. at 1619 Reported and signed by: Ravinder Melissa MD Electronically Signed: Ravinder Melissa MD at 16:18 EST ,
--- NOTE | 2021-12-03 12:02 | OP.PCM_ITS ---
Report of Operation Pre-Operative Diagnosis: Right hip rheumatoid arthritis, transcervical femoral neck fracture Post-Operative Diagnosis: Right hip rheumatoid arthritis, transcervical femoral neck fracture Surgery/Procedure Performed:: Right direct anterior total hip replacement Description of Surgical Findings:: Stable hip with equal leg length Surgeon: Sudhir Moe service center manager: Quang Colón Type of Anesthesia: Spinal Anesthesiologist: Armando Louie Special Medications: 2 g Ancef, 1 g TXA at incision, 1 g TXA closure, 10 mg Decadron, joint cocktail (5 mg Duramorph, 30 mL of 0.5% Ropivicaine, 1000 units of epinephrine, 30 mg of Toradol) Specimen's removed: Bony cuts Estimated Blood Loss (mL): 190468 Fluids Replaced: 800 mL crystalloid Description of Procedure: Components used: 1. Accolade 2 [place] femoral stem size 4 127? 2. Phillip trident 2 acetabular shell size 50 mm 3. [place] X3 polyethylene e 4. Phillip Biolox delta 36mm, -5mm femoral head Brief history operative indications: 51 yo f who has a history of rheumatoid arthritis with osteopenia secondary to her chronic steroid use had a fall yesterday with a right hip fracture. X-rays were consistent with transcervical displaced femoral neck fracture on the right with osteoarthritis including joint space narrowing, osteophyte formation and subchondral cysts. Total hip replacement was discussed with the patient with risks and benefits including but not limited to blood loss, DVTs, PEs, neurovascular damage, dislocation, general risks of anesthesia including loss of life. Patient demonstrated an understanding medical clearance is obtained the patient was consented for surgery. Procedure: On the date of procedure the patient's right hip was marked in the preoperative area. Patient was then taken back to the operating room where anesthesia assumed control of the C-spine and airway and administered anesthetic. Patient was transferred to the operating table and placed in the supine position. The hips were placed at the break of the bed and a sacral bump was placed. The right lower extremity was then prepped out in a sterile fashion using chlorhexidine while the surgeon scrubbed. The PA was vital in the positioning of the patient. Upon reentering the room the right lower extremity was draped in the standard orthopedic fashion and the incision was marked. A timeout was called and everyone agreed upon the side, the site, the procedure be performed, antibody given, and patient's identity. At this time incision was made through skin, subcutaneous tissue, and fat down to fascia. The fascia was then incised and the TFL was retracted laterally. A retractor was placed on the lateral border of the femoral neck. Attention was directed to the inferior portion of the approach and all crossing vessels were identified and appropriately coagulated. A retractor was then placed on the medial portion of the femoral neck. The anterior capsule was then cleared of all soft tissue and then H shaped capsulotomy was made. The retractors were then placed inside the capsule. The femoral neck was identified and a cleanup cut was made. At this time a power corkscrew was used to remove the femoral head. Attention was then turned toward the acetabulum where the soft tissues were appropriately retracted and the acetabulum was sequentially reamed to 50 mm. A 50 mm cup was then selected and impacted into place. 2 screws were placed in the safe zone. Acetabular liner was impacted into place and locking mechanism was verified. The position of the acetabular cup was then verified under live fluoroscopy. Attention was then turned to the femur. Soft tissue releases on the medial and lateral femoral neck were appropriately done, the leg was externally rotated and lateralized. A Basilio retractor was placed medially and proximally to the greater trochanter this allowed appropriate visualization and exposure of the femoral canal. Rongeour was then used to remove excess lateral bone. A canal finder and entry broach were used to open the proximal canal. Once we verified we were down the femoral canal we subsequently broached up to a size 4 femur. The appropriate neck was placed in the previously selected head was trialed with a -5 mm neck. Traction was pulled and the hip was reduced with internal rotation. Once it was appropriately reduced and stability was checked. There was minimal shuck, equal leg lengths and appropriate stability with hyperextension and external rotation as well as with 90? flexion and internal rotation. Fluoroscopy was then also used to verify the position of the components and leg lengths using the contralateral side for comparison. The trial components were then dislocated the proximal femur was again exposed and the components were removed from the wound. The final components were verified and opened. The wound was copiously irrigated out with normal saline. The acetabulum was checked for any residual debris. The final components were placed and impacted. Traction and internal rotation were again used to reduce the hip. After adequate reduction the hip remained stable with appropriate leg lengths. The final components were once again checked with live fluoroscopy and were found to be satisfactory. The wound was then copiously irrigated with normal saline once more, and hemostasis was obtained. Closure was then done using #1 Vicryl runner to close the fascia. A 2-0 vicryl interuppted sutures were used to close the subcutaneous skin. A 3-0 Monocryl and Steri-Strips were used for final skin closure. A Silverlon dressing was placed. Patient was awakened by anesthesia and transferred to the [facility]. Patient was then transferred to the PACU for recovery. During the course of the procedure the physician special loan officer (PE) played a vital role. Their intimate knowledge of my steps in the procedure aided in safe and expedient completion of the procedure. The PE played a vital rolls in positioning particularly in obtaining the appropriate positioning of the sacral bump. The PE was also vital in the retraction of soft tissues during the exposure and especially the femoral work as this is a vital part of the procedure to prevent complications and fractures. The PE was also vital and protecting soft tissues during times of bony cuts and reaming. He also played a vital role in closure with my direct supervision. The PE was also important during reduction and dislocation of the joint and trials intraoperatively. Postoperative plan: Patient will get 24 hours postop antibiotics. Patient will get in-house physical therapy and will be weight-bear as tolerated. Patient will follow up in office in 2 weeks for a wound check and x-rays. Patient has previous DVT so she will be placed on Xarelto 10 mg daily. Complications No intraoperative complications Admit VTE Documentation VTE Present on Admission: No VTE Mechan Device Prophylaxis: SCD's and Thigh High CONNIE Hose VTE Pharm Prophylaxis ordered?: Yes
[2021-12-03] MEDS: TXA in NS 100ml (Placed in Wound) OPERA.SITE (12:05)
--- NOTE | 2021-12-03 12:09 | RAD_ITS ---
STUDY: X-RAY - PELVIS AND RIGHT HIP REASON FOR EXAM: Postoperative evaluation of right hip arthroplasty. TECHNIQUE: 2 views of the pelvis and hip. COMPARISON: Radiographs 12/02/2021. FINDINGS: There is postoperative gas in the soft tissues. There is heterotopic ossification overlying the medial aspect of the right hip as on the preoperative study. Normal bilateral iliac wings, sacroiliac joints and visualized sacrum. Normal bilateral superior and inferior pubic rami. Normal pubic symphysis. Normal bilateral ischial tuberosities. There is a right hip arthroplasty without evidence of complication. RAD/Hip Min 2 Views (Portable) IMPRESSION: Uncomplicated right hip arthroplasty. Electronically Signed: Frederic Saucedo MD at 14:28 EST ,
--- NOTE | 2021-12-03 13:11 | PN.HOSP_ITS ---
Subjective Subjective Patient has just recently returned from the OR and is experiencing some postoperative pain. She was just given oxycodone. She also complains that she is cold and blankets have been given to her. She does indicate that her port patrol officer is handling bone health and she is recently being precertified for Prolia at home. Objective Data Objective Data Vital Signs: Vital Signs Temp Pulse Resp BP Pulse Ox 97.5 F L 53 L 16 129/94 H 99 12/03/21 07:39 12/03/21 07:52 12/03/21 07:39 12/03/21 07:39 12/03/21 07:39 Oxygen Delivery Method Room Air Weight: 33.566 kg Body Mass Index (BMI) 13.5 Intake & Output: Intake and Output for Last 24 Hours 12/01/21 12/02/21 12/03/21 23:59 23:59 23:59 Intake Total 110 / 110 Output Total 1475 / 1475 Balance -1365 / -1365 Lab / Micro Data Result Diagrams: 12/02/21 17:10 12/02/21 20:03 Labs: Laboratory Results - last 24 hr 12/02/21 16:46: Sodium 135 L, Potassium 4.4, Chloride 100, Carbon Dioxide 30.0, Anion Gap 5, BUN 10, Creatinine 0.52 L, Estim Creat Clear Calc 67.19, Est GFR (MDRD) Af Amer 157, Est GFR (MDRD) Non-Af 130, BUN/Creatinine Ratio 19.1, Glucose 90, Calcium 8.2 L, Total Bilirubin 0.50, AST 19, ALT 29, Alkaline Phosphatase 48, Total Protein 5.8 L, Albumin 2.8 L, Globulin 3.0, Albumin/Globulin Ratio 0.9 12/02/21 17:10: Blood Type A POSITIVE, Antibody Screen NEGATIVE 12/02/21 17:10: WBC 6.1, RBC 4.13 L, Hgb 14.8, Hct 42.1, MCV 101.9 H, MCH 35.8 H , MCHC 35.2, RDW Std Deviation 51.4 H, RDW Coeff of Shanta 13.4, Plt Count 209, MPV 9.0, Immature Gran % (Auto) 0.300, Neut % (Auto) 75.9 H, Lymph % (Auto) 14.7 L, [place] % (Auto) 8.9, Eos % (Auto) 0.2, Baso % (Auto) 0.0, Absolute Neuts (auto) 4.6, Absolute Lymphs (auto) 0.89, Nucleated RBC % 0 12/02/21 17:10: PT 12.7, INR 1.0, APTT 30.4 12/02/21 20:03: Sodium 138, Potassium 4.3, Chloride 104, Carbon Dioxide 29.0, Anion Gap 5, BUN 9, Creatinine 0.49 L, Estim Creat Clear Calc 70.48, Est GFR (MDRD) Af Amer 170, Est GFR (MDRD) Non-Af 141, BUN/Creatinine Ratio 18.4, Glucose 68 L, Calcium 8.4 L, Total Bilirubin 0.50, AST 20, ALT 26, Alkaline Phosphatase 47, Total Protein 5.7 L, Albumin 2.7 L, Globulin 3.0, Albumin/Globulin Ratio 0.9 12/02/21 20:03: Vitamin D 25-Hydroxy 46.2 12/03/21 08:19: POC Glucose 75 Micro: Microbiology 12/02/21 17:20 Nasal Secretion SARS-CoV-2 Antigen (Rapid) - Final Radiography Diagnostic Testing: Radiology Impression Chest X-Ray 12/02/21 17:25 IMPRESSION: No radiographic evidence of acute cardiopulmonary disease. at 1842 Reported and signed by: Ravinder Melissa MD Electronically Signed: Ravinder Melissa MD at 18:41 EST Reading Location ID and State: [facility] [place] / [place] Tel , Service support , Physical Exam Const alert, oriented x3 and no apparent distress Constitutional Narrative: Groggy middle-aged white female who appears much older than stated age, lying in bed, nontoxic-appearing, markedly cachectic, temporal wasting Exam Limitations: no limitations Nutritional Appearance: cachectic HEENT head/scalp atraumatic HEENT Narrative: Mucous membranes are currently dry, no thrush, Mallampati is 2 Head and Scalp: normocephalic Resp normal respiratory effort, no retractions, no use of accessory muscles and clear to auscultation bilaterally Auscultation: Negative for crackles, rales, rhonchi or wheezes Cardio regular rate, regular rhythm, S1 normal heart sound, S2 normal heart sound, no murmurs, no rub, no gallops, no clicks and no JVD GI normal to inspection, nondistended, normoactive bowel sounds, soft to palpation, non-tender and non-distended GI Narrative: Scaphoid abdomen Extremity no clubbing, cyanosis or edema Extremity Narrative: Decreased lean muscle mass Peripheral Pulses: Yes pulses 2+ throughout Neuro oriented x3, CN's II-XII intact bilaterally and no sensory deficits noted Neuro Narrative: Decreased mobility right lower extremity secondary to postoperative pain however no focal deficit noted Sensorium / Orientation: awake and alert Speech: speech normal Assessment & Plan Assessment/Plan (1) Fracture of femoral neck: QUALIFIERS: Encounter type: subsequent encounter Fracture healing: with routine healing Fracture type: closed Laterality: right Qualified Code(s): S72.001D - Fracture of unspecified part of neck of right femur, subsequent encounter for closed fracture with routine healing PLAN: Right femoral neck fracture -Postop day 0 right direct anterior total hip arthroplasty -Orthopedics would like 2 weeks of postoperative doxycycline given immunocompromise status at baseline -Hold Xeljanz for 2 weeks until incision is adequately healed -Weightbearing as tolerated -DVT prophylaxis of Xarelto 10 mg daily -2-week post op follow-up for wound check and x-rays -PT/OT consultations -Vitamin D level is appropriate at 46 -Patient is following up with regards to her bone health with her port patrol officer -Pre-CERT for Prolia is currently pending -She is not currently on anything for bone health however Anorexia nervosa -Complicates clinical care with wound healing and nutrition -Dietitian consulted -Continue p.o. supplements -Patient is following with outpatient psychiatry for this. Severe malnutrition -Dietitian consulted -Supplements ordered RA -Hold to the tofacitinib -Continue prednisone -Monitor needs for stress dosing GERD -Continue PPI Hypertension -Continue amlodipine Chronic pain -Continue gabapentin Anxiety/depression -Continue home medications DVT prophylaxis -Continue Xarelto CODE STATUS -Full code Charges/Coding Visit Charges Inpatient E&M: 99407 Subs Hosp L2
[2021-12-03] MEDS: Acetaminophen 500 MG Tablet 1000 MG PO ×2 (14:45→22:34)
[2021-12-03] MEDS: Mirtazapine 15 MG Tablet 45 MG PO (14:46)
[2021-12-03] MEDS: Senna/Docusate Sodium 1 Tablet 2 TABLET PO ×2 (14:46→22:07)
[2021-12-03] MEDS: FLUoxetine 20 MG Capsule PO (14:46)
[2021-12-03] MEDS: Pantoprazole Sodium 20 MG Tablet PO (14:47)
[2021-12-03] MEDS: Folic Acid 1 MG Tablet PO (14:47)
[2021-12-03] MEDS: Metoprolol(XL)Succ 50 MG Tablet PO (14:47)
[2021-12-03] MEDS: oxyCODONE 5 MG Tablet PO (14:47)
[2021-12-03] MEDS: Ensure Surgery 237 ML LIQUID PO (14:48)
[2021-12-03] MEDS: 0.9% Normal Saline 1,000 ML 100 ML IV (14:57)
--- NOTE | 2021-12-03 15:50 | CASEMGMT ---
HUMBERTO MACHADO Assessment: Face to Face with pt for initial transition planning/care coordination assessment. RN JEANNETTE introduced self and role at [facility], pt voices understanding and consents to assessment. Pt is A/O x4 and answers all questions appropriately at this time. Pt sitting up in bed eating jello in no distress with at bedside. Care providers, pharmacy, and demographics verified/updated. Admitting Dx: Right Hip Fx PCP:Randee Specialists:Romeo, psychologist; almas Monteiro Preferred [facility]acy: [facility] Insurance: FREDERIC Ordaz Prescription Benefit: yes LW/HPOA: Pt denies having a LW/DPOA and denies need for info regarding AD. LNOK: Fred Penaloza, Living Arrangements: Pt lives with in a two story house with 2 steps to enter without a rail. Pt reports she was I in ADL's prior to hospitalization and denies concerns at home. Transportation: Pt drives self and denies concerns with transportation. Pt or relatives are able to provide transportation while pt cannot drive. DME/HHC/SNF: Pt has a FWW and cane at home. She normally does not use AD. Pt has had HHC through [facility] in the past, denies SNF stays. Pt states no concerns with going home at time of dc. Pt would like to go home with [facility] therapy again. Discussed that HUMBERTO MACHADO will follow and see how pt does with therapy. Pt denies need for list of HHC providers including quality and resource use data and consistent with the patient?s preferred geographic region, medical needs, and insurance network. Pt has designated her to discuss dc plans with. Pt states no further concerns/needs. Advised pt to ask CM if any further question/concerns/needs arise, voices understanding. Pt Goal: Home with [facility] Plan: TBD, pending therapy.
[2021-12-03] MEDS: Vancomycin IV 500 MG/100 ML BAG 100 MG IV (16:23)
[2021-12-03] MEDS: Cefazolin 1 GM/50 ML BAG IV (18:32)
[2021-12-03] MEDS: QUEtiapine 100 MG Tablet PO (22:07)
[2021-12-03] MEDS: oxyCODONE 5 MG Tablet 10 MG PO (22:25)
[2021-12-04] VITALS (7 sets, daily range): BP systolic 75–100; BP diastolic 62–79; PULSE 62–72; RESP 14–16; TEMP 36.4–37.2; O2SAT 91–100
[2021-12-04] MEDS: Gabapentin 600 MG Tablet 1200 MG PO (00:11)
[2021-12-04] MEDS: Morphine 4 MG/ML Syringe IV (00:15)
[2021-12-04] MEDS: 0.9% Normal Saline 1,000 ML 100 ML IV (02:34)
[2021-12-04] MEDS: Cefazolin 1 GM/50 ML BAG IV (04:32)
[2021-12-04 05:02] LABS: Hematocrit 36.8 % (37-47); Hemoglobin 12.6 g/dL (12.0-15.0); Mean Corp Hgb Conc 34.2 g/dL (32-36); Mean Corpuscular Hgb 36.1 pg (27.0-32.0); Mean Corpuscular Volume 105.4 fL (81-99); Mean Platelet Vol. 8.7 fl (6.2-12.0); Platelet Count 172 K/mm3 (150-450); RBC Distribution Width CV 13.4 % (11.6-14.6); RBC Distribution Width SD 52.4 fl (35.1-43.9); Red Blood Count 3.49 M/mm3 (4.2-5.4)
[2021-12-04] MEDS: Rivaroxaban 10 MG Tablet PO (05:19)
[2021-12-04] MEDS: Acetaminophen 500 MG Tablet 1000 MG PO (05:21)
[2021-12-04 05:35] LABS: Anion Gap 2 (5-15); BUN 13 mg/dL (7-18); BUN/Creat Ratio 25.3 RATIO (10-20); Calcium,Total 7.2 mg/dL (8.5-10.1); Chloride 107 mmol/L (98-107); Creatinine, Serum 0.51 mg/dL (0.55-1.02); EST Glomerular Filtration Rate 133 mL/min (>60); Est Glom Filt Rate - Afr Amer 161 mL/min (>60); Glucose 94 mg/dL (74-106); Potassium 4.1 mmol/L (3.5-5.1); Sodium Level 140 mmol/L (136-145)
[2021-12-04] MEDS: oxyCODONE 5 MG Tablet 10 MG PO ×2 (06:50→11:45)
--- NOTE | 2021-12-04 09:49 | PN.ORTHO_ITS ---
Subjective Subjective The patient was sitting in bedside chair upon examination. Patient denies any chest pain, shortness of breath, dizziness, lightheadedness, nausea or vomiting, or calf pain. Pain is controlled on medications. No adverse overnight events. Patient states she feels much better today with her right hip. She has been through therapy and doing well. Plan will be for possible discharge home today with discussion with medicine. Patient does have history of previous DVT and we do recommend anticoagulation such as Xarelto for 2 weeks postoperatively. We will transition patient at 2 weeks over to baby aspirin 81 mg twice daily. Objective Data Objective Data Vital Signs: Vital Signs Temp Pulse Resp BP Pulse Ox 98.9 F 72 16 92/72 91 12/04/21 07:54 12/04/21 07:54 12/04/21 07:54 12/04/21 07:54 12/04/21 07:54 Oxygen Flow Rate (L/min) 15 Oxygen Delivery Method Room Air Weight: 33.566 kg Body Mass Index (BMI) 13.5 Intake & Output: Intake and Output for Last 24 Hours 12/02/21 12/03/21 12/04/21 23:59 23:59 23:59 Intake Total 1300.00 / 1300.00 1343.33 / 1343.33 Output Total 1475 / 1475 300 / 300 Balance -175.00 / -175.00 1043.33 / 1043.33 Lab / Micro Data Result Diagrams: 12/04/21 04:52 12/04/21 04:52 Labs: Laboratory Results - last 24 hr 12/04/21 04:52: WBC 4.0 L, RBC 3.49 L, Hgb 12.6, Hct 36.8 L, MCV 105.4 H, MCH 36.1 H, MCHC 34.2, RDW Std Deviation 52.4 H, RDW Coeff of Shanta 13.4, Plt Count 172, MPV 8.7 12/04/21 04:52: Sodium 140, Potassium 4.1, Chloride 107, Carbon Dioxide 31.0, Anion Gap 2 L, BUN 13, Creatinine 0.51 L, Estim Creat Clear Calc 67.60, Est GFR (MDRD) Af Amer 161, Est GFR (MDRD) Non-Af 133, BUN/Creatinine Ratio 25.3 H, Glucose 94, Calcium 7.2 L Micro: Microbiology 12/02/21 17:20 Nasal Secretion SARS-CoV-2 Antigen (Rapid) - Final Radiography Diagnostic Testing: Radiology Impression Hip/Pelvis X-Ray 12/03/21 11:28 IMPRESSION: Status post right hip replacement. at 1619 Reported and signed by: Ravinder Melissa MD Electronically Signed: Ravinder Melissa MD at 16:18 EST , Hip X-Ray 12/03/21 12:09 IMPRESSION: Uncomplicated right hip arthroplasty. Electronically Signed: Frederic Saucedo MD at 14:28 EST , Physical Exam Narrative Vital signs stable and afebrile. CONNIE hose and SCDs are in place Right thigh is soft and supple Dressing for skin tear clean dry and intact with no breakthrough drainage Patient is able to plantarflex and dorsiflex actively. Sensation is intact to light touch to saphenous, sural, superficial and deep peroneal, and tibial distribution. Main Mepilex dressing is clean dry and intact. Negative Homans bilaterally, negative signs and symptoms of DVT. Const alert, oriented x3 and no apparent distress Assessment & Plan Assessment/Plan (1) S/P total right hip arthroplasty: PLAN: 1. S/P right direct anterior total hip arthroplasty secondary to femoral neck fracture POD #1 2. Continue Pain Medications: Tylenol and oxycodone 3. DVT Prophylaxis: Recommend Xarelto for 2 weeks postoperatively due to previous history of DVT. At her 2-week postoperative visit we will switch her over to baby aspirin 81 mg twice daily for an additional 2 weeks 4. PT/OT: Weightbearing as tolerated with walker 5. H & H: 12.6/36.8, asymptomatic. Postoperative anemia secondary to acute bl ood loss from surgery without any intra operative complications. 6. Encouraged Incentive Spirometry 7. Dressing: Patient did sustain a skin tear over the mid/lower thigh. Continue with daily dressing changes with nonstick pad and triple antibiotic ointment. Continue with the Mepilex dressing for 5 days postoperatively. 8. Continue postoperative medical management per medicine: Okay for discharge from orthopedic standpoint when medically appropriate. 9. Disposition: Orthopedically stable, okay for discharge when medically appropriate. Recommend above pain medications postoperatively for pain control. Also recommend Xarelto for 2 weeks postoperatively due to previous history of DVT. Will transition over to 81 mg aspirin twice daily for an additional 2 weeks at her 2-week follow-up. Patient will need physical therapy for postoperative care. Plan will be for possible home health therapy. Continue with the Mepilex dressing for 5 days postoperatively. Continue with nonstick/Telfa dressing over the skin tear with daily triple antibiotic ointment. Daily wound changes for that dressing. Discussed with case management and patient will be scheduled for 2-week follow-up with x-rays and incision check. Also recommend holding off of her Xeljanz for 2 weeks postoperatively until we can assess incision and healing. Patient voiced understanding and agreement. Please contact orthopedics with any concerns or questions. Appreciate consultation.
[2021-12-04] MEDS: Senna/Docusate Sodium 1 Tablet 2 TABLET PO (09:53)
[2021-12-04] MEDS: Pantoprazole Sodium 20 MG Tablet PO (09:53)
[2021-12-04] MEDS: Folic Acid 1 MG Tablet PO (09:54)
--- NOTE | 2021-12-04 11:03 | CASEMGMT ---
Social Work Note ANITA reviewed chart. Pt with Anorexia Nervosa and currently see's Dr. Walters - Psychiatry at [facility]. SW in to speak with pt. Pt confirms she see's Dr. Walters and that she has an eating disorder. Pt states that she was trying to get into counseling but it wasn't working. Pt states that she didn't connect with the counselor. SW offered to provide pt with additional counseling resources. Pt agreeable to taking additional counseling resources, states she would like agencies in the [place] area. SW informed pt that this worker can provide her with list of counseling agencies in [place]. SW printed off counseling agencies in [place], [place]. SW also printed off Agencies/Programs/Treatment Centers that specifically focus on eating disorders. SW provided pt resources of Counseling Agencies in [place] and Agencies/Programs/Treatment Centers that specifically focus on eating disorders. Pt thanked this worker, denied additional needs or concerns at this time. Beckie Walker BUS DRIVER/MONITOR, DISPLAY COORDINATOR
--- NOTE | 2021-12-04 11:42 | CASEMGMT ---
RN CM in to discuss discharge needs with patient. Patient states she would like [facility] for home therapy and prefers [facility]. RN CM called [facility] and faxed referral. [facility] aware of referral as family has called and spoke to them. CM will continue to follow this patient and plan for a safe discharge.
--- NOTE | 2021-12-04 12:38 | DS.PCM_ITS ---
Providers Date of Admission: 12/02/21 Date of Discharge: 12/04/21 Primary Care Physician: Dr. Jadyn Jeff MD Consultations 12/04/21 08:37 Consult: Orthopedics Routine Consulting Provider: Sudhir Moe Reason for Consult: right hip fracture EMERGENT Consult: No MD Notified: Yes Date Notified: 12/03/21 Time Notified: 08:37 Method of Notification: Verbal Comments:: surgery already completed by Dr. Moe Reason For Visit: RIGHT HIP FXR Diagnosis Discharge Diagnosis (1) S/P total right hip arthroplasty: Status: Acute Code(s): Z96.641 - Presence of right artificial hip joint Medications at Discharge Home Medications amlodipine 10 mg tablet 10 mg PO DAILY 01/31/19 fluoxetine 20 mg tablet 20 mg PO DAILY 01/31/19 fluticasone furoate 50 mcg/actuation blister powder for inhalation 50 mcg INHALATION QWEEK ea 01/31/19 folic acid 1 mg tablet 1 mg PO DAILY 01/31/19 metoprolol succinate 50 mg capsule sprinkle, ext. release 24 hr 50 mg PO DAILY 01/31/19 mirtazapine 45 mg tablet 45 mg PO DAILY 01/31/19 multivitamin,ca-bkwh-qhfdmazo 1 tab PO DAILY 01/31/19 omeprazole 20 mg capsule,delayed release 20 mg PO DAILY 01/31/19 quetiapine 100 mg tablet 100 mg PO DAILY 01/31/19 tofacitinib 5 mg tablet 5 mg PO BID 01/31/19 gabapentin 1,200 mg PO 0000 12/02/21 gabapentin 1,200 mg PO 0800 12/02/21 gabapentin 800 mg PO 1730 12/02/21 prednisone 2 mg PO DAILY 12/02/21 prednisone 5 mg PO DAILY 12/02/21 doxycycline monohydrate 100 mg PO BID #28 cap 12/04/21 oxycodone 5 mg PO Q6H PRN 7 Days #28 tab 12/04/21 rivaroxaban [Xarelto] 10 mg PO DAILY@0600 #30 tab 12/04/21 Hospital Course Operations - (Right total hip arthroplasty) Procedures None Summary of Care Provided Minutes Spent on Discharge: 39 Hospital Course: Mrs. Penaloza is a 51-year-old white female who presented to the emergency department was coming hospital on 12/02/2021 after sustaining a fall where she bent forward and landed on her right side. This occurred the night before presentation and she has had ongoing right hip pain since that time. She was seen at an outside emergency room the day prior and was diagnosed with a hip fracture and discharged home with a walker as there was a hairline fracture at that time. The patient saw Dr. Temple physician medical record assistant and x-rays done at that time showed a displaced fracture of the femoral neck. She at that time was sent to the emergency department for admission and plans for operative repair to be performed. She was admitted to the medical floor and was treated with medication for pain and taken to the OR on 12/04/2021 at which time a right direct anterior total hip arthroplasty was performed. The patient has a history of anorexia nervosa and is markedly underweight with a BMI of 13.5. She is currently undergoing psychiatric care as an outpatient for this. She also has rheumatoid arthritis and is on chronic immunosuppression with Xeljanz as well as chronic prednisone. She will be given 2 weeks of postoperative doxycycline give n her immunocompromise status per orthopedic recommendations as well as holding her Xeljanz for 2 weeks postoperatively until her incision is healed well. She is allowed to be weightbearing as tolerated and will continue Xarelto 10 mg daily for DVT prophylaxis. She was given a 1 month prescription for this. A vitamin D level was assessed and found to be 46. She is currently on no medication for bone health however she reports her clinical registered nurse is currently in the process of precertifying her to obtain Prolia as an outpatient. I did recommend to her given her chronic prednisone use that she needs to be on something if tolerates. She is to follow-up in 2 weeks for a postoperative visit, wound check and x-rays to be done at that time. She was discharged home with recommendations for home health physical therapy and Occupational Therapy on 12/04/2021 in stable condition. Discharge diagnoses: Right femoral neck fracture Right total hip arthroplasty Anorexia nervosa Severe malnutrition Rheumatoid arthritis GERD Hypertension Chronic pain Anxiety Depression Physical Exam Const alert, oriented x3 and no apparent distress Constitutional Narrative: middle-aged white female who appears much older than stated age, sitting up in bed, eating breakfast and watching television, nontoxic-appearing, markedly cachectic, temporal wasting General Appearance: cooperative, comfortable, well kempt and well developed Orientation / Consciousness: awake Exam Limitations: no limitations Nutritional Appearance: cachectic HEENT normocephalic and head/scalp atraumatic Eyes PERRL, EOMs intact bilaterally and conjunctivae normal Eyes Narrative: Glasses. No icterus. Neck no lymphadenopathy, supple and no JVD Neck Narrative: No thyromegaly, trachea midline Resp normal respiratory effort, no retractions, no use of accessory muscles and clear to auscultation bilaterally Auscultation: Negative for crackles, rales, rhonchi or wheezes Cardio regular rate, regular rhythm, S1 normal heart sound, S2 normal heart sound, no murmurs, no rub, no gallops, no clicks and no JVD GI normal to inspection, nondistended, normoactive bowel sounds, soft to palpation, non-tender and non-distended GI Narrative: Scaphoid abdomen Extremity no clubbing, cyanosis or edema Extremity Narrative: Decreased lean muscle mass Skin no rashes or lesions noted, no wounds, skin turgor normal and no jaundice Skin Narrative: Postoperative incision is covered with a dressing without any significant drainage Neuro oriented x3, CN's II-XII intact bilaterally and no sensory deficits noted Neuro Narrative: Decreased mobility right lower extremity secondary to postoperative pain however no focal deficit noted Sensorium / Orientation: awake, alert, oriented to person and oriented to place Speech: speech normal Psych affect normal Weight / BMI Weight Weight: 33.566 kg Body Mass Index (BMI) 13.5 ABG / Lab / Microbiology Data Result Diagrams: 12/04/21 04:52 12/04/21 04:52 Laboratory: Laboratory Results - last 24 hr 12/04/21 04:52: WBC 4.0 L, RBC 3.49 L, Hgb 12.6, Hct 36.8 L, MCV 105.4 H, MCH 36.1 H, MCHC 34.2, RDW Std Deviation 52.4 H, RDW Coeff of Shanta 13.4, Plt Count 172, MPV 8.7 12/04/21 04:52: Sodium 140, Potassium 4.1, Chloride 107, Carbon Dioxide 31.0, Anion Gap 2 L, BUN 13, Creatinine 0.51 L, Estim Creat Clear Calc 67.60, Est GFR (MDRD) Af Amer 161, Est GFR (MDRD) Non-Af 133, BUN/Creatinine Ratio 25.3 H, Glucose 94, Calcium 7.2 L Microbiology: Microbiology 12/02/21 17:20 Nasal Secretion SARS-CoV-2 Antigen (Rapid) - Final Radiography Diagnostic Testing: Radiology Impression Hip/Pelvis X-Ray 12/03/21 11:28 IMPRESSION: Status post right hip replacement. at 1619 Reported and signed by: Ravinder Melissa MD Electronically Signed: Ravinder Melissa MD at 16:18 EST , Hip X-Ray 12/03/21 12:09 IMPRESSION: Uncomplicated right hip arthroplasty. Electronically Signed: Frederic Saucedo MD at 14:28 EST , D/C Instructions Discharge Diet: No restrictions Discharge Activity: May Not Drive and Use Walker (Weightbearing as tolerated) Weight Bearing Status: Weight bearing as tolerated Keep extremity elevated above heart level: Operative Extremity Call your doctor if you observe: Fever of 101 or Higher and Uncontrolled pain Meaningful Use Info Meaningful Use Diagnoses (Choose all that apply): None applicable Discharge Plan Admission Admit Date/Time: 12/02/21 17:29 Primary Reason for Your Visit: Fall and R Hip pain Attending Provider: Tiffany De La Cruz Primary Care Provider: Jadyn Jeff Consulting Providers: Sudhir Moe Instructions Additional Instructions / Restrictions: Continue with Mepilex dressing for 5 days postoperatively. For skin tear please use nonstick/Telfa pad with daily changes and use of triple antibiotic ointment. Your 2 week follow up appointment is scheduled for Ray on 12/18/2021 at 3:15 pm in the afternoon. Discharge Orders/Prescriptions Prescriptions: New Xarelto 10 mg Tablet 10 mg PO DAILY@0600 Qty: 30 RF: 0 oxycodone 5 mg Tablet 5 mg PO Q6H PRN (Reason: pain) 7 Days Qty: 28 RF: 0 doxycycline monohydrate 100 mg capsule 100 mg PO BID Qty: 28 RF: 0 Continued amlodipine 10 mg tablet 10 mg PO DAILY RF: 0 metoprolol succinate 50 mg capsule,sprinkle,ER 24hr 50 mg PO DAILY RF: 0 omeprazole 20 mg capsule,delayed release(DR/EC) 20 mg PO DAILY RF: 0 folic acid 1 mg tablet 1 mg PO DAILY RF: 0 fluoxetine 20 mg tablet 20 mg PO DAILY RF: 0 mirtazapine 45 mg tablet 45 mg PO DAILY RF: 0 quetiapine 100 mg tablet 100 mg PO DAILY RF: 0 fluticasone furoate 50 mcg/actuation blister with device 50 mcg INHALATION QWEEK RF: 0 Complete Multivitamin tablet 1 tab PO DAILY RF: 0 prednisone 5 mg tablet 5 mg PO DAILY RF: 0 prednisone 1 mg tablet 2 mg PO DAILY RF: 0 gabapentin 800 mg Tablet 1,200 mg PO 0800 RF: 0 gabapentin 800 mg Tablet 800 mg PO 1730 RF: 0 gabapentin 800 mg Tablet 1,200 mg PO 0000 RF: 0 Held Xeljanz 5 mg tablet 5 mg PO BID RF: 0 Hold Instructions: Resume on 12/18/21. Referrals / Follow Up: Jadyn Jeff MD [Primary Care Provider] - Within 2 Weeks Quang Colón PA-C [PHYSICIAN FEATHER DRYING MACHINE OPERATOR] - 12/18/21 3:15 pm (you have a post- op follow up appointment at [facility] with Quang BACA on December 18, 2021 at 3:15pm) Disposition Disposition (needs filled in before D/C Order can be placed): Home Health Service Charges/Coding Visit Charges Inpatient E&M: 75234 Disch Hosp
[2021-12-04] MEDS: Acetaminophen 325 MG Tablet 650 MG PO (13:45)
--- NOTE | 2021-12-08 12:34 | CASEMGMT ---
Received PA form for eliquis on Wednesday. Per tc with patient from [facility], pt picked up medication. Received another PA this date. TC to [facility], spoke with Shiva. She states pt picked up medication and had 0 copay. She also states a second script was sent in by for 14 days. She states the first was filled by for 30 days. HUMBERTO MACHADO completed PA regardless, it was approved on the cover my meds website.
== END 2021-12-04 14:44 | disposition home health service (06) | DRG 521 ==
LOC: ED 17:02 → MS3 17:45
PROVIDERS: Specialist; Emergency Provider Emergency Medicine; PCP Student in an Organized Health Care Education/Training Program; Visit Provider Internal Medicine
PROC: 0SR904A Replacement of Right Hip Joint with Ceramic on Polyethylene Synthetic Substitute, Uncemented, Open Approach (ICD-10-PCS; CPT 27284; principal; 2021-12-03 09:35)
DX: S72.001A Fracture of unspecified part of neck of right femur, initial encounter for closed fracture (principal); E43 Unspecified severe protein-calorie malnutrition; D84.9 Immunodeficiency, unspecified; F50.00 Anorexia nervosa, unspecified; Z68.1 Body mass index [BMI] 19.9 or less, adult; M06.9 Rheumatoid arthritis, unspecified; I10 Essential (primary) hypertension; K21.9 Gastro-esophageal reflux disease without esophagitis; F41.9 Anxiety disorder, unspecified; Z66 Do not resuscitate; F32.A Depression, unspecified; G89.29 Other chronic pain; Z79.01 Long term (current) use of anticoagulants; Z79.52 Long term (current) use of systemic steroids; Z79.899 Other long term (current) drug therapy; W18.30XA Fall on same level, unspecified, initial encounter; Y93.89 Activity, other specified; Y92.009 Unspecified place in unspecified non-institutional (private) residence as the place of occurrence of the external cause; M85.80 Other specified disorders of bone density and structure, unspecified site
CPT/HCPCS: 36415; 71045; 73501; 73502; 76000; 80048; 80053; 82306; 82962; 85025; 85027; 85610; 85730; 86850; 86900; 86901; 87426; 88305; 88311; 93005; 97110; 97162; 97166; 97530; 99251; 99285; C1776; J7030; J7040; J7120; A4216; G0463; J2405